=== PATIENT | male | born 1975 | race Caucasian/White ===

== ENCOUNTER 2018-02-22 06:29 | Day surgery (SDC) | payer OTHER ==
--- NOTE | 2018-02-13 08:08 | HP ---
PREOPERATIVE HISTORY AND PHYSICAL: DATE OF ADMISSION/SURGERY: 02/22/18 ATTENDING SURGEON: Chio Roth MD * (DICTATED BY ROSALES CORREIA) PROCEDURE: Left knee arthroscopy, partial meniscectomy, possible chondroplasty , synovectomy. CHIEF COMPLAINT: Left knee pain. HISTORY OF PRESENT ILLNESS: Mr. Garces is a 42-year-old male, who presents to the clinic for a left knee pain due to left knee meniscus tear. He has failed conservative measures to include physical therapy and injections and has therefore agreed to undergo a left knee arthroscopy, partial meniscectomy, possible chondroplasty and synovectomy with Dr. Roth on 02/22/18. PAST MEDICAL HISTORY: 1. Osteoarthritis. 2. Anxiety. PAST SURGICAL HISTORY: 1. Left knee arthroscopy in March 2017. 2. Sinus surgery. 3. Chronic lumbar spine surgery. The patient denies prior complications with anesthesia. MEDICATIONS: 1. Hydroxyzine 25 mg 1 to 2 every 6 to 8 hours. 2. Montelukast 10 mg 1 by mouth every day. 3. Chlorthalidone 25 mg half a tab by mouth every day. 4. Vitamin D3 by mouth daily. 5. Loratadine 10 mg once a day. 6. Meloxicam 7.5 mg once or twice a day as needed for pain. 7. Baclofen 20 mg 1 by mouth 4 times a day. 8. Gabapentin 300 mg 1 by mouth 3 times a day. 9. Duloxetine 40 mg 1 by mouth every morning. ALLERGIES: NEOSPORIN. FAMILY HISTORY: Positive for cancer on the maternal side and heart disease on the paternal side. Denies family history of DVT or PE. SOCIAL HISTORY: The patient is not working. He smokes half a pack of cigarettes per day for the past 25 years. He denies alcohol or illegal drug use. He uses a cane for assistance with ambulation at all times. He is right hand dominant. REVIEW OF SYSTEMS: A 14-point review of systems was reviewed with the patient, positive for current complaint, otherwise negative. Denies fevers, chills, chest pain, shortness of breath, history of bleeding disorder, history of DVT or PE. PHYSICAL EXAMINATION GENERAL: A 42-year-old well-developed, well-nourished male, in no acute distress. Alert and oriented x3. Appropriate mood and affect. Appropriate balance and coordination of the upper extremities. VITAL SIGNS: Height 68, weight 159. Pulse 96, blood pressure 142/90. BMI 42.2. HEENT: Normocephalic, atraumatic. PERRLA. Throat: Clear. NECK: Supple. PULMONARY: Lungs are clear to auscultation bilaterally. No wheezing, rhonchi, or rales. CARDIAC: Regular rate and rhythm. S1, S2. No murmurs, gallops, or rubs. No edema. ABDOMEN: Positive bowel sounds. Soft and nontender. MUSCULOSKELETAL: Left lower extremity, skin is intact. No palpable masses. Moderate effusion on the knee. Tenderness over the medial joint line. Positive Apley's and Cl's. Stable with varus and valgus stress. Range of motion 10 to 90. +5/5 strength to dorsiflexion and plantar flexion. Calves soft and nontender. +2 PT pulse. Sensation is intact to light touch distally. NEUROLOGICAL: Alert and oriented x3. Cranial nerves grossly intact. Sensation is intact to light touch. STUDIES: Multi-view x-rays of the left knee revealed mild osteoarthritic changes. IMPRESSION: Left knee medial meniscus tear. PLAN: The patient is scheduled to undergo a left knee arthroscopy, partial meniscectomy, possible chondroplasty and synovectomy with Dr. Roth on . He will return to the office 10 to 14 days postop for followup and suture removal. Percocet will be used for postop pain management. ROSALES CORREIA [id number]/[facility] #: [id number] [facility] MEDICAL CENTERHaritha
[~2018-02-22 06:29] MED LIST: Buffered Lidocaine 0.9% SYRIN* 5 ML/SYR SYRINGE INTRADERM ONE
[2018-02-22] MEDS ORDERED: ceFAZolin 2 GM PREMIX (*) 2 GM/50 ML BAG IVPB ONE (06:55)
[2018-02-22] MEDS ORDERED: Midazolam* 1 MG/ML 2 ML VIAL (2 MG) ONE (07:21)
[2018-02-22] MEDS ORDERED: fentaNYL* 50 MCG/ML 2 ML VIAL (100 MCG VIAL) ONE ×2 (07:21→08:42)
[2018-02-22] MEDS ORDERED: Propofol* 10 MG/ML 20 ML BTL IV PUSH ONE (07:41)
[2018-02-22] MEDS ORDERED: Lidocaine 2% PF * 5 ML VIAL ONE (07:41)
[2018-02-22] MEDS ORDERED: Ketorolac INJ* 30 MG/ML 1 ML VIAL ONE (07:41)
[2018-02-22] MEDS ORDERED: Dexamethasone IV* 4 MG/ML 1 ML (4 MG) ONE (07:41)
[2018-02-22] MEDS ORDERED: Famotidine IV* 10 MG/ML 2 ML (20 mg) ONE (07:41)
[2018-02-22] MEDS ORDERED: Bupivacaine 0.25% SDV* 30 ML ONE (08:38)
[2018-02-22] MEDS ORDERED: methylPREDNISolone ACETATE 80* 80 MG/ML 1 ML VIAL ONE (08:38)
[2018-02-22] MEDS ORDERED: EPINEPHRINE 1 MG/ML 1 ML VIAL ONE (08:38)
[2018-02-22] MEDS ORDERED: HYDROmorphone INJ* 1 MG/ML CARPUJECT SYRINGE IV PRN (08:46)
[2018-02-22] MEDS ORDERED: Naloxone* 0.4 MG/ML 1 ML VIAL IV PRN (08:46)
[2018-02-22] MEDS ORDERED: PROCHLORPERAZINE INJ 5 MG/ML 2 ML VIAL IV PRN (08:46)
[2018-02-22] MEDS ORDERED: fentaNYL* 50 MCG/ML 2 ML VIAL (100 MCG VIAL) IV PRN (08:46)
[2018-02-22] MEDS ORDERED: DiMENhydriNATE IV* 50 MG/ML VIAL IV PUSH PRN (08:46)
[2018-02-22] MEDS ORDERED: HYDROcodone/ACETAMIN 5-325 MG* 1 TAB PO PRN ×2 (08:46)
[2018-02-22] MEDS ORDERED: Acetaminophen TAB* 325 MG PO PRN (08:46)
[2018-02-22] MEDS ORDERED: Levalbuterol 0.63MG/3ML NEB* UNIT OF USE INH PRN (08:46)
[2018-02-22] MEDS ORDERED: Labetalol IV* 5 MG/ML 20 ML VIAL ONE (08:57)
[2018-02-22] MEDS ORDERED: oxyCODONE/Acetamin 5/325 MG* TAB ONE (10:03)
[2018-02-22 10:07] VITALS: BP 136/90
--- NOTE | 2018-02-23 11:43 | OP ---
OPERATIVE REPORT: DATE OF OPERATION: 02/22/18 DATE OF : 75 SURGEON: Chio Roth MD MANAGER: ROSALES Padilla Ms. did help throughout the procedure with preparation of the leg, wound retraction, manipul ation of the knee, and wound closure. ANESTHESIOLOGIST: Abner Hubbard MD ANESTHESIA: General. PRE-OP DIAGNOSES: Left knee medial meniscal tear and osteoarthritis. POST-OP DIAGNOSES: Left knee medial meniscal tear and osteoarthritis. OPERATIVE PROCEDURE: Left knee arthroscopy with partial medial meniscectomy. INDICATIONS: Mr. Garces is a 42-year-old gentleman with several months of increasingly severe left kne e pain. Recent MRI confirmed a medial meniscal tear. He continued to have mechanical symptoms and pa in in the knee along the medial joint line despite conservative treatment. He elected to undergo lef t knee arthroscopy with partial medial meniscectomy, possible chondroplasty, possible synovectomy. I nformed consent was obtained from the patient. He understood the risks of surgery included, but were not limited to, bleeding, infection, damage to nearby structures, continued pain, need for further s urgery, stroke, heart attack, blood clot, and . He wished to proceed. ESTIMATED BLOOD LOSS: Less than 25 cc. COMPLICATIONS: None. SPECIMEN: None. INTRAOPERATIVE FINDINGS: Intraoperatively, the patient was noted to have grade 3 and 4 Outerbridge c artilage changes along the medial femoral condyle. He had exposed subchondral bone and some cartilag e flapping. He was noted to have a linear tear of the white-red zone in the posterior one-third of t he medial meniscus. This did displace anteriorly with motion at the knee. DESCRIPTION OF PROCEDURE: Mr. Garces was identified in the preanesthesia unit. His left lower extremi ty was marked as the correct operative side. Informed consent was signed and placed in the chart. T he patient was taken to the operating room and placed under general anesthesia without difficulty. L eft lower extremity was prepped and draped in the usual sterile fashion. Preop time-out was made to correctly identify the patient side and site. Appropriate perioperative antibiotics were given withi n 1 hour of incision. A 0.5-cm standard anterolateral portal incision was made along the anterolateral joint line. This wa s carried down through the capsule. Trocar was introduced. As soon as the water and light sources w ere turned on, there was immediate visualization of the suprapatellar pouch. A tour of the knee join t was performed. Suprapatellar pouch showed no obvious abnormality. Patellofemoral joint showed no o bvious abnormality. No significant cartilage damage. The medial gutters showed no loose body or pli ca. The medial compartment immediately showed a posterior meniscal tear with an anterior displacemen t. The medial femoral condyle had exposed subchondral bone and grade 3 and 4 Outerbridge cartilage c hanges. ACL and PCL appeared to be intact. The knee was placed in a figure-of-4 position. Lateral cartilage had minimal degenerative changes. No obvious meniscal tear. Lateral gutters showed no obv ious abnormality. Under direct visualization, a medial portal incision was made with a 15 blade. A probe was introduce d and a second tour of the knee joint was performed. No additional findings were noted. The posteri or medial meniscus was noted to be linear and in the white-red zone. This involved the posterior one -third of the medial meniscus. Straight biter and shaver were used to perform partial medial menisce ctomy until smooth border was obtained. Radiofrequency ablation wand was used to further smooth the edge of the meniscus. The knee was copiously irrigated with sterile saline. All instruments were re moved. Incisions were closed using 3- 0 nylon suture. Intraarticular injection of 80 mg of Medrol a nd 6 cc of 0.25% Marcaine was placed to the knee joint. Sterile Xeroform, 4x4s, and Webril were used to cover the incisions. Andrews wrap and cold pack were placed over this. The patient's anesthesia was reversed without difficulty. He was taken to the PACU in stable conditi on. Intended weightbearing will be weightbearing as tolerated. Intended DVT prophylaxis will be Coum haja with a Lovenox bridge. [id number]/[facility] #: [id number]
== END 2018-02-22 10:12 | disposition home or self-care (01) ==
LOC: OR 06:29
PROVIDERS: ATTEND Orthopaedic Surgery Adult Reconstructive Orthopaedic Surgery
DX: M23.204 Derangement of unspecified medial meniscus due to old tear or injury, left knee (principal); F41.9 Anxiety disorder, unspecified; M19.90 Unspecified osteoarthritis, unspecified site; F17.210 Nicotine dependence, cigarettes, uncomplicated
CPT/HCPCS: A9270-GY; J0690; J1040; J1100; J1885; J2250; J2704; J3010

== ENCOUNTER 2018-04-23 12:51 | Emergency (ER) | payer OTHER ==
[2018-04-23] MEDS ORDERED: NS 0.9% 1000 ML* 1,000 ML IV ONE (13:04)
[2018-04-23] MEDS ORDERED: Morphine VIAL* 4 MG/ML VIAL (1 ml vial) IV ONE ×2 (13:06→13:09)
[2018-04-23] MEDS ORDERED: LORazepam INJ* 2 MG/ML 1 ML VIAL IV PUSH ONE ×2 (13:28→15:29)
--- NOTE | 2018-04-23 13:29 | RAD ---
INDICATION: Chest pain. COMPARISON: There are no prior studies available for comparison. TECHNIQUE: A portable view of the chest was obtained. FINDINGS: Cardiac and mediastinal contours appear to be within normal limits. The lungs are clear. No pleural effusion is seen. IMPRESSION: NO EVIDENCE FOR ACUTE DISEASE.
[2018-04-23 13:37] LABS: ABS Basophils 0.1 10^3/ul (0-0.2); ABS Eosinophils 0.1 10^3/ul (0-0.6); ABS Lymphocytes 2.5 10^3/ul (1.0-4.8); ABS Monocytes 0.6 10^3/ul (0-0.8); ABS Neutrophils 6.4 10^3/ul (1.5-7.7); ABS Nucleated RBC 0 10^3/ul; Eosinophil % 0.6 % (0-6); Hematocrit 46 % (42-52); Hemoglobin 15.4 g/dl (14.0-18.0); Lymphocyte % 25.4 % (25-47); Mean Corpuscular HGB Conc 34 g/dl (31-36); Mean Corpuscular Hemoglobin 30 pg (27-31); Mean Corpuscular Volume 88 fL (80-94); Mean Platelet Volume 8.4 um3 (7.4-10.4); Nucleated Red Blood Cells % 0; Platelet Count 253 10^3/ul (150-450); Red Blood Count 5.18 10^6/ul (4.0-5.4); Red Cell Distribution Width 13 % (10.5-15); White Blood Count 9.7 10^3/ul (3.5-10.8)
[2018-04-23 13:54] LABS: EGFR Non-African American 91.4 (>60)
[2018-04-23] MEDS ORDERED: Iohexol 350* (CONTRAST) 500 ML MDV IV ONE (13:59)
--- OUTSIDE RECORDS SUMMARY | 2018-04-23 14:06 | XMS REPORT ---
:1975 External Reference #:[id number] Author Organization [facility] [employer] Address [address] [address] Phone [phone] Care Team Providers Name Role Phone Kumar Bravo MD Primary Care Physician Unavailable Payers Type Date Identification Numbers Payment Provider Subscriber Commercial Policy Number: [id number] Shaggy Garces PayID: [id number] [address] [place] [address] Problems Date Description Provider Status Onset: 01/15/2018 Localized, primary osteoarthritis Chio Roth M.D. Active Onset: 01/15/2018 Localized, primary osteoarthritis of the Chio Roth M.D. Active pelvic region and thigh Onset: 01/15/2018 Current tear of medial cartilage AND/OR Chio Roth M.D. 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 hours for pain Hydroxyzine HCL 00// Active Tablets 25mg 1-2 Unknown 0000 tablets by mouth every 6-8 hours Montelukast / Active Tablets 10mg 1 by mouth Unknown Sodium 0000 every day Chlorthalidone / Active Tablets 25mg 1/2 by Unknown 0000 mouth every day Vitamin D3 / Active Unknown 0000 Loratadine / Active Capsules 10mg once a day Unknown 0000 for allergies as needed Meloxicam / Active Tablets 7.5mg take one Unknown 0000 tab twice daily as needed for pain, avoid other nsaids Baclofen / Active Tablets 20mg 1 by mouth Unknown 0000 qid Gabapentin / Active Capsules 300mg 1 by mouth Unknown 0000 three times a day Duloxetine HCL / Active Caps DR 40mg 1 by mouth Unknown 0000 Part every morning Vital Signs Date Vital Result Comment 04/02/2018 Height 68 inches 5'8" Heart Rate 104 /min BP Systolic 122 mmHg BP Diastolic 82 mmHg Respiratory Rate 17 /min Body Temperature 98.0 F Pain Level 6 03/05/2018 Height 68 inches 5'8" Heart Rate 82 /min BP Systolic 162 mmHg BP Diastolic 94 mmHg Respiratory Rate 14 /min Body Temperature 97.7 F Pain Level 10 02/09/2018 Height 68 inches 5'8" Weight 159.00 lb Heart Rate 96 /min BP Systolic 142 mmHg BP Diastolic 90 mmHg BMI (Body Mass Index) 24.2 kg/m2 01/15/2018 Height 68 inches 5'8" Weight 140.00 lb Heart Rate 80 /min BP Systolic 126 mmHg BP Diastolic 88 mmHg Pain Level 8 BMI (Body Mass Index) 21.3 kg/m2 Results Description No Information Procedures Date CPT Code Description Status 02/22/2018 77174 Arthroscopy,Knee,Meniscectomy Medial Or Lateral Completed 02/22/2018 91342 Arthroscopy,Knee,Meniscectomy Medial Or Lateral Completed Encounters Type Date Location Provider CPT E/M Dx Office Visit 01/15/2018 [facility] Roth M.D. 73177 M17.12 1:00p [facility] M25.552 M25.562 M25.462 M16.12 S83.242A Plan of Care 04/02/2018 - Chio Roth M.D.M25.562 Pain in left kneeFollow up:Follow up: As [id number] Unilateral primary osteoarthritis, left kneeM25.462 Effusion, left kneeM23.322 Oth meniscus derang, post horn of medial meniscus, l knee
--- NOTE | 2018-04-23 14:45 | RAD ---
INDICATION: Epigastric abdominal pain. COMPARISON: There are no prior studies available for comparison. TECHNIQUE: Supine and upright views of the abdomen were obtained. FINDINGS: The small bowel and colon appear nondistended. No free intraperitoneal air is seen. No abnormal calcifications are seen. IMPRESSION: NO EVIDENCE FOR ACUTE FINDING.
--- NOTE | 2018-04-23 14:47 | RAD ---
HISTORY: Severe retrosternal chest pain COMPARISONS: None TECHNIQUE: Multiple contiguous axial CT scans of the chest were obtained after the administration of nonionic intravenous contrast, timed to the systemic arterial phase of contrast enhancement.. Coronal and sagittal multiplanar reformations are also submitted for review. 3-D volumetric reconstructions of the aorta are also submitted for review.. FINDINGS: NECK AND THYROID: The lower neck and thyroid are unremarkable. CHEST WALL: There is no lower cervical, axillary, or supraclavicular lymphadenopathy by size criteria. HEART AND PERICARDIUM: The heart is unremarkable. AORTA AND PULMONARY VASCULATURE: There is mild ectasia of ascending thoracic aorta up to 3.5 cm. There is no intimal flap or periaortic hematoma. The pulmonary vasculature is unremarkable technique. The left vertebral artery originates from the aortic arch. MEDIASTINUM: There is no mediastinal lymphadenopathy by size criteria. JENNIFER: There is no hilar lymphadenopathy by size criteria. AIRWAY AND ESOPHAGUS: The airway is unremarkable, without endobronchial filling defect. The esophagus is grossly normal. LUNG PARENCHYMA: There is centrilobular emphysematous change with an apical predominance. PLEURA: No pleural abnormalities are noted. UPPER ABDOMEN: The upper abdomen is unremarkable. BONES AND SOFT TISSUES: No bone or soft tissue abnormalities are noted. OTHER: None. IMPRESSION: 1. 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 2. EMPHYSEMA.
[2018-04-23 15:10] LABS: Urine Appearance Clear; Urine Blood Negative (Negative); Urine Color Straw; Urine Ketones Negative (Negative); Urine Protein Negative (Negative); Urine Urobilinogen Negative (Negative)
[2018-04-23] MEDS ORDERED: LORazepam INJ* 2 MG/ML 1 ML VIAL ONE (15:32)
--- NOTE | 2018-04-23 16:39 | RAD ---
Indication: Right upper quadrant pain. Real-time sonography of the right upper quadrant was performed. Liver is normal in size. There are no focal lesions or intrahepatic duct dilatation noted. The gallbladder demonstrates no calcified gallstones. No pericholecystic fluid or wall thickening is identified. The common duct measures 3 mm. The right kidney measures 12.0 x 4.4 x 5.0 cm with no hydronephrosis. The pancreas head, neck and proximal body demonstrates no mass or pancreatic duct. Aorta and inferior vena cava are unremarkable. IMPRESSION: No evidence of cholelithiasis or biliary duct dilatation is noted.
[2018-04-23 16:44] VITALS: BP 164/106
--- NOTE | 2018-04-23 17:57 | ED ---
Akash Le Angela, scribed for Dayne Maynard MD on 04/23/18 at 1309 . Abdominal Pain/Male - HPI Summary HPI Summary: This pt is a 42 y/o male presenting to [facility] c/o sudden onset of epigastric abdominal pain today. 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 Pt developed sudden onset of abd pressure and bloating. Since then pt states his pain is radiating to his mid sternal chest. Pt additionally notes SOB. Pt is a current smoker. Denies hx of MO, HTN, high cholesterol. PMHx: sciatica, anxiety. - History of Current Complaint Chief Complaint: EDChestPainROMI Stated Complaint: DIFFICULTY BREATHING,ABD PAIN Hx Obtained From: Patient Onset/Duration: Lasting Minutes - 30 min ago, Still Present Timing: Constant, Lasting Minutes - 30 min Severity Currently: Severe Pain Intensity: 10 Pain Scale Used: 0-10 Numeric Location: Epigastric Radiates: Yes Radiates to: Chest Aggravating Factor(s): Nothing Alleviating Factor(s): Nothing Associated Signs And Symptoms: Positive: Chest Pain, Other - POS: SOB. Negative : Fever - Allergies/Home Medications Allergies/Adverse Reactions: Allergies Allergy/AdvReac Type Severity Reaction Status Date / Time bacitracin Allergy eyes Verified 02/22/18 06:41 [From Neosporin swelling ([id number])] neomycin Allergy eyes Verified 02/22/18 06:41 [From Neosporin swelling ([id number])] polymyxin B Allergy eyes Verified 02/22/18 06:41 [From Neosporin swelling ([id number])] antidepressants Allergy mental Uncoded 02/22/18 06:41 changes bees Allergy anaphylaxis Uncoded 02/22/18 06:41 Home Medications: Home Medications Baclofen TAB* [Lioresal TAB*] 20 mg PO BEDTIME 04/23/18 [History Confirmed 03/07] Baclofen TAB* [Lioresal TAB*] 20 mg PO QID 04/23/18 [History Confirmed 04/23/18 ] Cholecalciferol (Vitamin D3) [Vitamin D3] 2,000 unit PO DAILY 04/23/18 [History Confirmed 04/23/18] DULoxetine DR CAP* [Cymbalta CAP*] 60 mg PO DAILY 04/23/18 [History Confirmed ] Gabapentin CAP(*) [Neurontin 300 CAP(*)] 900 mg PO TID 04/23/18 [History Confirmed 04/23/18] LoraTADine TAB(NF) [Claritin 10 MG TAB(NF)] 10 mg PO DAILY 04/23/18 [History Confirmed 04/23/18] Meloxicam(NF) [Mobic(NF)] 7.5 mg PO BID 04/23/18 [History Confirmed 04/23/18] Montelukast Sodium TAB* [Singulair TAB*] 10 mg PO DAILY 04/23/18 [History Confirmed 04/23/18] hydrOXYzine HCL TAB* [Atarax 25 MG TAB*] 25 mg PO TID PRN 04/23/18 [History Confirmed 04/23/18] hydrOXYzine HCL TAB* [Atarax 25 MG TAB*] 50 mg PO BEDTIME 04/23/18 [History Confirmed 04/23/18] oxyCODONE/Acetamin 10/325(NF) [Percocet 10/325 (NF)] 1 tab PO Q4HR 04/23/18 [ History Confirmed 04/23/18] PMH/Surg Hx/FS Hx/Imm Hx Endocrine/Hematology History: Denies: Hx Diabetes Cardiovascular History: Denies: Hx Hypertension, Other Cardiovascular Problems/Disorders Respiratory History: Denies: Other Respiratory Problems/Disorders GI History: Denies: Other GI Disorders Musculoskeletal History: Reports: Hx Arthritis - back, knees Denies: Other Musculoskeletal History Sensory History: Reports: Hx Contacts or Glasses - glasses Denies: Hx Hearing Aid Opthamlomology History: Reports: Hx Contacts or Glasses - glasses Neurological History: Denies: Other Neuro Impairments/Disorders Psychiatric History: Reports: Hx Anxiety - Surgical History Surgery Procedure, Year, and Place: hernia, 2004, [place]. back surgery, 2007, [place] [facility]. sinus surgery, 1997. left knee, 2017, [place] Hx Anesthesia Reactions: No Infectious Disease History: No Infectious Disease History: Denies: Traveled Outside the [place] in Last 30 Days - Family History Known Family History: Positive: Cardiac Disease Family History: Cancer on maternal's side - Social History Alcohol Use: None Substance Use Type: Reports: None Smoking Status (MU): Heavy Every Day Tobacco Smoker Amount Used/How Often: pack a day 24 yrs Review of Systems Negative: Fever Positive: Chest Pain Positive: Shortness Of Breath Positive: Abdominal Pain All Other Systems Reviewed And Are Negative: Yes Physical Exam - Summary Physical Exam Summary: VITAL SIGNS: Reviewed. GENERAL: Patient is a well-developed and nourished male who is lying comfortable in the stretcher. Patient is in significant distress secondary to pain. HEAD AND FACE: Normocephalic and atraumatic. EYES: PERRLA, EOMI x 2, No injected conjunctiva. EARS: Hearing grossly intact. Ear canals and tympanic membranes are WNL. MOUTH: Oropharynx within normal limits. NECK: Supple, trachea is midline, no adenopathy, no JVD. CHEST: Symmetric, no tenderness at palpation LUNGS: Clear to auscultation bilaterally. No wheezing or crackles. CVS: RRR, S1 and S2 present, no murmurs or gallops appreciated. ABDOMEN: Soft. Positive for epigastric tenderness. Pt has reproducible pain at palpation. No signs of distention. Positive bowel sounds. No rebound no guarding , and no masses palpated. No abdominal bruit or pulsations. EXTREMITIES: FROM in all major joints, no edema, no cyanosis or clubbing. NEURO: Alert and oriented x 3. No acute neurological deficits. Speech is normal. SKIN: Dry and warm Triage Information Reviewed: Yes Vital Signs On Initial Exam: Initial Vitals Temp Pulse Resp BP Pulse Ox 98.1 F 100 26 150/107 95 04/23/18 12:54 04/23/18 12:54 04/23/18 12:54 04/23/18 12:54 04/23/18 12:54 Vital Signs Reviewed: Yes Diagnostics - Vital Signs Vital Signs Temp Pulse Resp BP Pulse Ox 04/23/18 12:54 98.1 F 100 26 150/107 95 - Laboratory Lab Results: Lab Results 04/23/18 04/23/18 04/23/18 Range/Units 13:23 13:23 13:23 WBC 9.7 (3.5-10.8) 10^3/ul RBC 5.18 (4.0-5.4) 10^6/ul Hgb 15.4 (14.0-18.0) g/dl Hct 46 (42-52) % MCV 88 (80-94) fL MCH 30 (27-31) pg MCHC 34 (31-36) g/dl RDW 13 (10.5-15) % Plt Count 253 (150-450) 10^3/ul MPV 8.4 (7.4-10.4) um3 Neut % (Auto) 66.0 (38-83) % Lymph % (Auto) 25.4 (25-47) % [place] % (Auto) 6.6 (0-7) % Eos % (Auto) 0.6 (0-6) % Baso % (Auto) 1.4 (0-2) % Absolute Neuts (auto) 6.4 (1.5-7.7) 10^3/ul Absolute Lymphs (auto) 2.5 (1.0-4.8) 10^3/ul Absolute Monos (auto) 0.6 (0-0.8) 10^3/ul Absolute Eos (auto) 0.1 (0-0.6) 10^3/ul Absolute Basos (auto) 0.1 (0-0.2) 10^3/ul Absolute Nucleated RBC 0 10^3/ul Nucleated RBC % 0 Sodium 135 L (139-145) mmol/L Potassium 4.3 (3.5-5.0) mmol/L Chloride 103 (101-111) mmol/L Carbon Dioxide 25 (22-32) mmol/L Anion Gap 7 (2-11) mmol/L BUN 5 L (6-24) mg/dL Creatinine 0.91 (0.67-1.17) mg/dL Est GFR ( Amer) 117.5 (>60) Est GFR (Non-Af Amer) 91.4 (>60) BUN/Creatinine Ratio 5.5 L (8-20) Glucose 95 (70-100) mg/dL Lactic Acid 1.0 (0.5-2.0) mmol/L Calcium 9.3 (8.6-10.3) mg/dL Magnesium 1.9 (1.9-2.7) mg/dL Total Bilirubin 0.50 (0.2-1.0) mg/dL AST 15 (13-39) U/L ALT 13 (7-52) U/L Alkaline Phosphatase 63 (34-104) U/L Total Creatine Kinase 124 (10-223) U/L CK-MB (CK-2) 2.5 (0.6-6.3) ng/mL Myoglobin 26.4 (17.4-105.7) ng/mL Troponin I 0.00 (<0.04) ng/mL B-Natriuretic Peptide ( - 100) pg/mL Total Protein 6.8 (6.4-8.9) g/dL Albumin 4.4 (3.2-5.2) g/dL Globulin 2.4 (2-4) g/dL Albumin/Globulin Ratio 1.8 (1-3) Lipase 22 (11.0-82.0) U/L TSH 1.14 (0.34-5.60) mcIU/mL Urine Color Urine Appearance Urine pH (5-9) Ur Specific [place] (1.010-1.030) Urine Protein (Negative) Urine Ketones (Negative) Urine Blood (Negative) Urine Nitrate (Negative) Urine Bilirubin (Negative) Urine Urobilinogen (Negative) Ur Leukocyte Esterase (Negative) Urine Glucose (Negative) Blood Type Antibody Screen 04/23/18 04/23/18 04/23/18 Range/Units 13:23 13:23 14:51 WBC (3.5-10.8) 10^3/ul RBC (4.0-5.4) 10^6/ul Hgb (14.0-18.0) g/dl Hct (42-52) % MCV (80-94) fL MCH (27-31) pg MCHC (31-36) g/dl RDW (10.5-15) % Plt Count (150-450) 10^3/ul MPV (7.4-10.4) um3 Neut % (Auto) (38-83) % Lymph % (Auto) (25-47) % [place] % (Auto) (0-7) % Eos % (Auto) (0-6) % Baso % (Auto) (0-2) % Absolute Neuts (auto) (1.5-7.7) 10^3/ul Absolute Lymphs (auto) (1.0-4.8) 10^3/ul Absolute Monos (auto) (0-0.8) 10^3/ul Absolute Eos (auto) (0-0.6) 10^3/ul Absolute Basos (auto) (0-0.2) 10^3/ul Absolute Nucleated RBC 10^3/ul Nucleated RBC % Sodium (139-145) mmol/L Potassium (3.5-5.0) mmol/L Chloride (101-111) mmol/L Carbon Dioxide (22-32) mmol/L Anion Gap (2-11) mmol/L BUN (6-24) mg/dL Creatinine (0.67-1.17) mg/dL Est GFR ( Amer) (>60) Est GFR (Non-Af Amer) (>60) BUN/Creatinine Ratio (8-20) Glucose (70-100) mg/dL Lactic Acid (0.5-2.0) mmol/L Calcium (8.6-10.3) mg/dL Magnesium (1.9-2.7) mg/dL Total Bilirubin (0.2-1.0) mg/dL AST (13-39) U/L ALT (7-52) U/L Alkaline Phosphatase (34-104) U/L Total Creatine Kinase (10-223) U/L CK-MB (CK-2) (0.6-6.3) ng/mL Myoglobin (17.4-105.7) ng/mL Troponin I (<0.04) ng/mL B-Natriuretic Peptide 10 ( - 100) pg/mL Total Protein (6.4-8.9) g/dL Albumin (3.2-5.2) g/dL Globulin (2-4) g/dL Albumin/Globulin Ratio (1-3) Lipase (11.0-82.0) U/L TSH (0.34-5.60) mcIU/mL Urine Color Straw Urine Appearance Clear Urine pH 7.0 (5-9) Ur Specific [place] 1.010 (1.010-1.030) Urine Protein Negative (Negative) Urine Ketones Negative (Negative) Urine Blood Negative (Negative) Urine Nitrate Negative (Negative) Urine Bilirubin Negative (Negative) Urine Urobilinogen Negative (Negative) Ur Leukocyte Esterase Negative (Negative) Urine Glucose Negative (Negative) Blood Type A Positive Antibody Screen Negative Result Diagrams: 04/23/18 13:23 04/23/18 13:23 Lab Statement: Any lab studies that have been ordered have been reviewed, and results considered in the medical decision making process. - Radiology Chest XR Xray Interpretation: No Acute Changes - IMPRESSION: No evidence for acute disease. Dr. Maynard has reviewed this radiology report. Radiology Interpretation Completed By: Radiologist Abdomen XR Xray Interpretation: No Acute Changes - IMPRESSION: No evidence for acute finding. Dr. Maynard has reviewed this radiology report. 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 2. Emphysema. Dr. Maynard has reviewed this radiology report. CT Interpretation Completed By: Radiologist - Ultrasound No standard instances Ultrasound Interpretation: No Acute Changes - Abdomen US IMPRESSION: No evidence of cholelithiasis or biliary duct dilatation is noted. Dr. Maynard has reviewed this radiology report. Ultrasound Interpretation Completed By: Radiologist - EKG 13:07 Cardiac Rate: Tachycardia - at 105 bpm EKG Rhythm: Sinus Tachycardia EKG Interpretation: No ST elevations. Normal axis. Re-Evaluation - Re-Evaluation First Eval Re-Evaluation Time: 16:01 Comment: I reviewed the lab and imaging results with the pt. Will order an abd US. Second Eval Re-Evaluation Time: 17:00 Comment: I reviewed the abd US results with the pt. He will be discharged home. Abdominal Pain Fem Course/Dx - Course Assessment/Plan: This patient is a 42-year-old male who presents to the emergency department with a chief complaint of having epigastric and retrosternal pain. Patient reports that the symptoms started this morning therefore he decided to come to the emergency room for further workup and management. Test results without any significant abnormality except for sodium of 135. 2 troponins 4 hours apart 0.00. EKG shows no ST elevations. Chest x- ray negative for acute pathology, abdomen x-ray negative for an acute pathology. Initially the patient was given IV fluids, the patient was given morphine for the pain and Ativan for the anxiety. Since the patient had this retrosternal chest pain I decided to do a chest CTA to rule out dissection. Impression shows mild ectasia of ascending thoracic aorta up to 3.5 cm, without any initial flapped to suggest dissection. Emphysema. The patient became anxious again before he was given another dose of Ativan. At this point I tried to discharge the patient however the patients requested to the right upper quadrant ultrasound to rule out acute cholecystitis. Left upper quadrant ultrasound negative for acute cholecystitis. Therefore I had a long discussion with the patient and the patients family that I have done a lot of workup and I did not find any abnormality or any reason for admission. Therefore the patient was discharged home with follow-up with primary care physician. I discussed all the findings and test results with the patient. Patient was instructed to return to the emergency room immediately if any of the symptoms return or worsens. Plan of care was discussed with the patient and understands and agrees. All questions were answered at patient satisfaction. There were no further complaints or concerns. Lung exam before discharge: CTA B /L. Good air exchange. No wheezing or crackles heard. CVS: S1 and S2 present. No murmurs appreciated. Patient is alert and oriented x 3. Patient is hemodynamically stable. Patient will be discharged home with follow up PCP in the next 2-3 days - Diagnoses Provider Diagnoses: Atypical chest pain Discharge - Sign-Out/Discharge Documenting (check all that apply): Discharge/Admit/Transfer - Discharge - Discharge Plan Condition: Stable Disposition: HOME Patient Education Materials: Chest Pain (ED) Referrals: Kumar Bravo MD [Primary Care Provider] - 3 Days Additional Instructions: Please follow up with your primary care provider. RETURN TO THE ED FOR ANY NEW OR WORSENING SYMPTOMS. - Billing Disposition and Condition Condition: STABLE Disposition: Home The documentation as recorded by the Akash johnson Angela accurately reflects the service I personally performed and the decisions made by , Dayne Maynard MD.
== END 2018-04-23 17:15 | disposition home or self-care (01) ==
LOC: ED 12:51
DX: R07.89 Other chest pain (principal); R10.13 Epigastric pain; I77.810 Thoracic aortic ectasia; J43.2 Centrilobular emphysema; F41.9 Anxiety disorder, unspecified; M19.90 Unspecified osteoarthritis, unspecified site; F17.200 Nicotine dependence, unspecified, uncomplicated; Z79.899 Other long term (current) drug therapy; Z88.3 Allergy status to other anti-infective agents; Z88.8 Allergy status to other drugs, medicaments and biological substances
CPT/HCPCS: 36415; 71045; 71275; 74019; 76705; 80053; 81003; 82550; 82553; 83605; 83690; 83735; 83874; 83880; 84443; 84484; 85025; 86850; 86900; 86901; 93005; 96361; 96374; 96375; 96376; 99283; J2060; J2270; Q9967